=== PATIENT | male | born 1995 ===

== ENCOUNTER 2020-04-28 12:39 | Inpatient (IN) | payer MEDICAID ==
[~2020-04-28] VITALS: Ht 182.9 cm; Wt 100.0 kg
[2020-04-28] MEDS ORDERED: ONDANSETRON ODT 4 MG PO PRN (13:00)
[2020-04-28] MEDS ORDERED: BISACODYL 10 MG SUPP PR PRN (13:00)
[2020-04-28] MEDS ORDERED: POLYETHYLENE GLYCOL 17 GM PACKET PO PRN (13:00)
[2020-04-28] MEDS ORDERED: PLEASE ENTER ALLERGIES MC SCH (14:23)
[2020-04-28] MEDS ORDERED: PLEASE ENTER HEIGHT AND WEIGHT MC SCH (15:00)
[2020-04-28 15:33] VITALS: BP 143/88
[2020-04-28] MEDS: ACETAMINOPHEN 325 MG TABLET PO PRN ×2 (16:30→20:17)
[2020-04-28] MEDS: CEPHALEXIN 500 MG CAPSULE PO SCH ×2 (16:30→20:17)
[2020-04-28 17:05] LABS: CHOL/HDL RATIO 3.7
[2020-04-28 19:00] VITALS: BP 124/76
[2020-04-29] MEDS: CEPHALEXIN 500 MG CAPSULE PO SCH ×4 (04:21→21:10)
[2020-04-29 07:00] VITALS: BP 143/92
[2020-04-29] MEDS: DOCUSATE 100 MG CAPSULE PO PRN ×2 (08:15→17:37)
[2020-04-29] MEDS: ACETAMINOPHEN 325 MG TABLET PO PRN ×2 (08:16→14:58)
[2020-04-29 10:41] LABS: MICROSCOPIC NOT IND
[2020-04-29 20:05] VITALS: BP 142/83
[2020-04-29] MEDS: MELATONIN 5 MG TABLET PO SCH (21:10)
[2020-04-30] MEDS: CEPHALEXIN 500 MG CAPSULE PO SCH ×4 (03:20→21:13)
[2020-04-30] MEDS: ACETAMINOPHEN 325 MG TABLET PO PRN (04:52)
[2020-04-30 07:30] VITALS: BP 124/69
[2020-04-30] MEDS ORDERED: IBUPROFEN 200 MG TABLET PO PRN (16:00)
[2020-04-30] MEDS ORDERED: QUETIAPINE 25MG TABLET PO PRN ×2 (19:00)
[2020-04-30 19:37] VITALS: BP 134/86
[2020-04-30] MEDS ORDERED: TRAZODONE 50MG TABLET PO SCH (21:00)
[2020-04-30] MEDS: MELATONIN 5 MG TABLET PO SCH (21:13)
[2020-05-01] MEDS: CEPHALEXIN 500 MG CAPSULE PO SCH ×2 (03:44→07:57)
[2020-05-01 07:54] VITALS: BP 138/91
== END 2020-05-01 08:45 | disposition home or self-care (01) | DRG 751 ==
LOC: 3E 14:22
PROVIDERS: ADMIT Psychiatry & Neurology Psychosomatic Medicine; ATTEND Psychiatry & Neurology Psychosomatic Medicine
DX: F33.2 Major depressive disorder, recurrent severe without psychotic features (principal); F10.21 Alcohol dependence, in remission; F12.90 Cannabis use, unspecified, uncomplicated; F17.201 Nicotine dependence, unspecified, in remission; F43.10 Post-traumatic stress disorder, unspecified; S51.812A Laceration without foreign body of left forearm, initial encounter; X78.9XXA Intentional self-harm by unspecified sharp object, initial encounter; Z88.8 Allergy status to other drugs, medicaments and biological substances; Z79.899 Other long term (current) drug therapy; Z81.8 Family history of other mental and behavioral disorders; Z84.1 Family history of disorders of kidney and ureter; Z82.49 Family history of ischemic heart disease and other diseases of the circulatory system; Z83.3 Family history of diabetes mellitus
CPT/HCPCS: 36415; 71045; 80061; 81003; 93005; Q0162